=== PATIENT | male | born 1945 | race Caucasian/White ===

== ENCOUNTER 2017-03-13 07:11 | Emergency (ER) | payer MEDICARE, OTHER ==
--- NOTE | 2017-03-14 13:16 | ER ---
ADMIT: 03/13/2017 RM/LOC: ER [facility] MR#: [id number] [address] [id number] IQRAJOSH CHAPA [address] [place] [id number] Emergency Room Report SEX: M AGE: 71 : 1945 DATE: 03/13/2017 HISTORY OF PRESENT ILLNESS: A 71-year-old gentleman, who was putting on his shoes this morning when he went to stand up and experienced a sudden knee pain on the right knee. There was no trauma, no mechanism for injury, showed up to the Emergency Department 10 to 15 minutes of the onset of the pain, had not taken anything for his pain. He was able to ambulate to the Emergency Department with no problem. PHYSICAL EXAMINATION: See T-sheet. IMAGING: X-rays were pending at the time of this dictation; however, anticipating them being negative, the patient will be discharged. DIAGNOSIS: Knee pain. PLAN: Instructed to use Motrin and Tylenol for pain control. Follow up with his primary doctor as needed. Augie Parkinson MD/ ember JOB #: [id number] CC: Augie Parkinson MD, Attending Physician
== END 2017-03-13 08:27 | disposition home or self-care (01) ==
LOC: ER 07:11
DX: M25.561 Pain in right knee (principal)